=== PATIENT | male | born 1985 | race Caucasian/White ===

== ENCOUNTER 2023-06-04 14:45 | Outpatient (CLI) | payer OTHER, SELFPAY ==
[2023-06-04 14:15] LABS: Coronavirus 19, PCR Not Detected (NotDetected); Influenza B, PCR Not Detected (NotDetected)
[2023-06-04 14:55] LABS: Influenza A, PCR Detected (NotDetected)
== END 2023-06-04 23:59 ==
LOC: LAB.DROPOF 14:46
PROVIDERS: PCP Family Medicine; Visit Provider Family Medicine
DX: R05.9 Cough, unspecified (principal); J09.X2 Influenza due to identified novel influenza A virus with other respiratory manifestations; F17.210 Nicotine dependence, cigarettes, uncomplicated
CPT/HCPCS: 87636

== ENCOUNTER 2024-06-10 19:12 | Emergency (ER) | payer OTHER, SELFPAY ==
[2024-06-10] VITALS (10 sets, daily range): BP systolic 138–141; BP diastolic 86–96; PULSE 105–122; RESP 15–23; TEMP 36.9; O2SAT 95–96; BMI 32.3
--- NOTE | 2024-06-10 19:30 | ECG_ITS ---
APPROVED REPORT Exam: Resting ECG HR:124 bpm ECG Measurements Heart Rate 124 AXES ND 120 P 3 QRSd 93 QRS -33 QT 267 T 62 QTc 340 Conclusion SINUS TACHYCARDIA LEFT AXIS DEVIATION [QRS AXIS < -30] MINIMAL VOLTAGE CRITERIA FOR LVH, CONSIDER NORMAL VARIANT [MEETS CRITERIA IN ONE OF: R(aVL), S(V1), R(V5), R(V5/V6)+S(V1)] NONSPECIFIC T-WAVE ABNORMALITY ABNORMAL ECG UNCONFIRMED REPORT Electronically signed by : ALICE LAURENT, 06/11/2024 06:51:04
--- NOTE | 2024-06-10 20:05 | ED_ITS ---
<Statement entered by Lillie Bernard DO - 06/11/24 00:24> I was consulted by the ARTURO, and we discussed the complexity of the problems being addressed. I approved the treatment and management plan for this patient's care in the emergency department, thus performing a substantive portion of the medical decision making. Troponins negative x 2, D-dimer negative, workup overall very reassuring. On reassessment, symptoms resolved with improvement in heart rate to the low 100s. Patient notes his baseline heart rate is high. Ultimately, after shared decision-making, he is comfortable with discharge with close follow-up with primary care. Strict return precautions given Lillie Bernard DO Discharge Plan Disposition Chief Complaint: Chest Pain Prescriptions Prescriptions: No Action Xarelto 20 mg tablet 20 mg PO DAILY Patient Comments: TAKE 1 TABLET BY MOUTH ONCE DAILY WITH DINNER aspirin 81 mg tablet,chewable 1 tab PO DAILY Patient Comments: CHEW AND SWALLOW 1 TABLET BY MOUTH ONCE DAILY azithromycin 250 mg tablet See Rx Instructions PO .COMPLEX Qty: 6 0RF Rx Instructions: For 250 mg dose pack: take 500 mg today (day 1), then 250 mg for 4 days (days 2-5) PO codeine-guaifenesin 10-100 mg/5 mL liquid 10 ml PO Q4-6H PRN (Reason: cough) Qty: 120 1RF Referrals Follow up/Referrals: Michoacano Lyons MD [Primary Care Provider] - See instructions Print Language Print Language: Fijian Discharge ED Provider: Lillie Bernard General Adult HPI General Chief complaint: Chest Pain Stated complaint: pain under LT arm Time Seen by Provider: 06/10/24 20:04 Mode of Arrival: Ambulatory Source of Information: Patient Limitations: No Limitations Description of Symptoms (Recalled from ER Triage Doc. by RN): left lateral chest pain for 2-3 hours, cough, sweats, chills History of Present Illness HPI narrative: Patient presents for evaluation of left posterior chest pain. Patient reports that he has had 2 to 3 hours of constant mid thoracic back pain. He denies any shortness of breath fever chills hemoptysis hematochezia melena nausea vomiting diarrhea but does endorse a nonproductive cough and diaphoresis. Patient has a past medical history of previous strokes and is on lifelong Xarelto. He also reportedly has a history of a cardiac tachyarrhythmia and was on medication for some period of time but is no longer taking it. Related Data Home Medications ?Medication ?Instructions ?Recorded ?Confirmed aspirin 81 mg chewable tablet 1 tab PO DAILY 06/04/23 06/04/23 rivaroxaban 20 mg tablet (Xarelto) 20 mg PO DAILY 06/04/23 06/04/23 Previous Rx's ?Medication ?Instructions ?Recorded azithromycin 250 mg tablet See Rx Instructions PO .COMPLEX #6 06/04/23 tabs codeine 10 mg-guaifenesin 100 mg/5 10 ml PO Q4-6H PRN cough #120 mL 06/04/23 mL oral liquid Allergies Allergy/AdvReac Type Severity Reaction Status Date / Time No Known Allergies Allergy Verified 06/04/23 10:03 [facility] Disclaimer: The information contained in this section may have been updated after the patient was seen, as this information can be updated by other users. Medical History (Updated 06/04/23 @ 10:05 by Elvi Luciano LPN) Antiphospholipid syndrome Surgical History (Updated 06/04/23 @ 10:05 by Elvi Luciano LPN) No history of previous surgery Family History (Updated 06/04/23 @ 10:05 by Elvi Luciano LPN) Father Heart attack Grandfather Heart attack Social History (Updated 06/04/23 @ 10:06 by Elvi Luciano LPN) Smoking Status: Current every day smoker alcohol intake: current alcohol intake frequency: a few times a month current occupational status: employed Travel in the last 8 weeks: None household members: significant other housing: house Have you lived/traveled outside [place] in past 30 days?: No Contact w/someone who lives/traveled outside [place] past 30 days?: No Exposure to someone with infectious disease in past 14 days?: No Do you have a fever (greater than 100.4 F or 38 C)?: No Have you tested positive for COVID-19: No Exposed to someone with COVID-19 in past 14 days?: No Do you have a sore throat?: No Do you have a cough?: No Do you have any weakness?: No Do you have any diarrhea?: No Are you experiencing any unusual bleeding?: No Do you have any muscle aches/pain?: No Do you have any abdominal pain?: No Are you experiencing loss of taste or smell?: No ROS Obtained: Yes Systems reviewed as appropriate & no additional complaints except as documented Physical Exam General General appearance: alert and in no apparent distress Neck Neck exam: Present lymphadenopathy Respiratory Respiratory exam: Present normal lung sounds bilaterally; Absent respiratory distress, wheezes or accessory muscle use Cardiovascular Cardiovascular exam: Present tachycardia Neurological Exam Neurological exam: Present alert and oriented X3 Medical Decision Making Medical Records Medical records reviewed: Yes I reviewed the patient's medical records. Screening: Per USPSTF and CDC recommendations, given the prevalence of disease in our region, it is our hospital?s policy to screen for HIV and viral Hepatitis for all patients aged 18 and over and those with ongoing risk factors. Kory Inquiry Pt receiving controlled substance: No Vital Signs: 06/10/24 19:13 Pulse Rate [Right Radial] 122 H Respiratory Rate 17 Blood Pressure [Right Arm] 138/86 Blood Pressure Mean [Right Arm] 103 Blood Pressure Source [Right Arm] Automatic Cuff 02 Sat by Pulse Oximetry 96 Oxygen Delivery Method Room Air Lab Data Lab results reviewed: Yes I reviewed the patient's lab results. Lab Results 06/10/24 19:50: WBC 8.3, RBC 4.30 L, Hgb 13.0 L, Hct 38.2 L, MCV 88.8, MCH 30.2, MCHC 34.0, RDW 13.2, Plt Count 126 L, MPV 11.5 H, Neut % (Auto) 65.8, Lymph % (Auto) 18.5, Sherman % (Auto) 10.9 H, Eos % (Auto) 3.2, Baso % (Auto) 1.0, Neut # (Auto) 5.5, Lymph # (Auto) 1.5, Sherman # (Auto) 0.9, Eos # (Auto) 0.3, Baso # (Auto) 0.1 06/10/24 19:50 Orders (Tests/Meds): ED MEDICATIONS Discontinued Medications Generic Name Dose Route Start Last Admin Trade Name Freq PRN Reason Stop Dose Admin Acetaminophen 1,000 mg 06/10/24 20:24 06/10/24 20:42 Acetaminophen 1,000mg/100ml Vial IV 06/10/24 20:25 1,000 mg ONCE ONE Administration Ketorolac Tromethamine 15 mg 06/10/24 20:24 06/10/24 20:43 Ketorolac 30mg/Ml Vial IV 06/10/24 20:25 15 mg ONCE ONE Administration ORDERS Category Date Time Status Chest XR 2 view (NOT portable) [XR chest 2V] Stat Exams 06/10/24 20:24 Completed BNP [NT Pro Brain Natriuretic Pep.] Stat Lab 06/10/24 19:50 Received CBC w/Auto Diff [Complete Blood Count Auto Diff] Stat Lab 06/10/24 19:50 Completed CMP [Comprehensive Metabolic Panel] Stat Lab 06/10/24 19:50 Received D-Dimer Stat Lab 06/10/24 19:50 Received HIV Combo Routine Lab 06/10/24 20:00 Received Hepatitis C Ab Qual. W/ RFX Routine Lab 06/10/24 20:00 Received Rapid PCR Covid and Flu A/B Stat Lab 06/10/24 20:40 Received Trop I [Troponin I] Stat Lab 06/10/24 19:50 Received Troponin I Q3H Lab 06/10/24 23:30 Ordered Troponin I Q3H Lab 06/11/24 02:30 Ordered Medical Decision Narrative: In summary patient is a 89-year-old male who presents to the emergency department for evaluation of posterior left-sided chest pain. Patient is initially normotensive at 138/86 tachycardic at 122 with sinus tachycardia on the bedside monitor, breathing 17 times a minute with an O2 sat of 96% on room air upon arrival, with a temperature of 101. Physical exam is remarkable for clear breath sounds on auscultation no reproducible pain on palpation patient however is hot to touch and diaphoretic but has no increased work of breathing. Heart sounds are normal.. Differential diagnosis includes ACS versus PE versus viral or bacterial upper or lower respiratory tract infection etc. Initial workup will be conducted with twelve-lead EKG D-dimer hematologic labs respiratory panel. Initial interventions include crystalloid bolus Toradol Tylenol. Initial workup ordered and pending at the time of handoff Dr. Bernard at 2100 hrs. Critical Care Critical Care Time Critical Care Time: No
--- NOTE | 2024-06-10 20:24 | XR_ITS ---
PROCEDURE INFORMATION: Exam: XR Chest Exam date and time: 06/10/2024 8:25 PM Age: 38 years old Clinical indication: Chest wall pain; Left posterior chest pain, productive cough TECHNIQUE: Imaging protocol: Radiologic exam of the chest. Views: 2 views. COMPARISON: No relevant prior studies available. FINDINGS: Lungs: Patchy opacities in a basilar predominant distribution may reflect infection. Pleural spaces: No large effusion or pneumothorax. Heart/Mediastinum: No evidence of mediastinal widening or cardiac silhouette enlargement; the mediastinum and heart appear within normal limits for contour and size. Diaphragm: There is elevation of the right hemidiaphragm. Bones/joints: No evidence of acute osseous abnormalities within the visualized portions of the thoracic spine and ribs. Osseous structures appear appropriate for patient age. IMPRESSION: Patchy opacities in a basilar predominant distribution may reflect infection.
[2024-06-10] MEDS: ACETAMINOPHEN 1,000MG/100ML VIAL 1000 MG IV (20:42)
[2024-06-10] MEDS: KETOROLAC 30MG/ML VIAL 15 MG IV (20:43)
[2024-06-10 20:45] LABS: Basophils # 0.1 K/mm3 (0-0.2); Eosinophils # 0.3 K/mm3 (0.0-0.4); Eosinophils % 3.2 % (0.1-12.0); Hematocrit 38.2 % (42.0-52.0); Lymphocytes # 1.5 K/mm3 (0.7-4.5); Lymphocytes % 18.5 % (10-50); Mean Corpuscular Hemoglobin 30.2 pg (27.0-31.2); Mean Corpuscular Volume 88.8 fl (80-94); Mean Platelet Volume 11.5 fl (7.4-10.4); Monocytes # 0.9 K/mm3 (0.1-1.0); Monocytes % 10.9 % (1.7-9.3); Neutrophils # 5.5 K/mm3 (1.8-7.8); Neutrophils % 65.8 % (37.0-80.0); Platelet Count 126 K/mm3 (142-424); Red Cell Distribution Width 13.2 % (11.5-17.5); White Blood Count 8.3 K/mm3 (4.8-10.8)
[2024-06-10 20:47] LABS: Coronavirus 19, PCR Not Detected (NotDetected); Influenza A, PCR Not Detected (NotDetected); Influenza B, PCR Not Detected (NotDetected)
[2024-06-10 20:51] LABS: Alanine Aminotransferase 49 U/L (12-78); Albumin Level 4.6 g/dl (3.5-5.0); Albumin/Globulin Ratio 1.5 (1.1-1.8); Alkaline Phosphatase 83 U/L (38-126); Anion Gap 15.8 mEq/L (5-15); Aspartate Amino Transferase 46 U/L (17-59); Bilirubin,Total 0.8 mg/dl (0.2-1.3); Blood Urea Nitrogen 13 mg/dl (9-20); Calcium 8.7 mg/dl (8.4-10.2); Carbon Dioxide 27 mmol/L (22.0-30.0); Chloride 101 mmol/L (98-107); Creatinine Clearance Estimated 108 mL/min (50-200); Estimated Glomerular Filt Rate 68 ml/min (>60); GFR (African American) 82 ML/MIN (>60); Glucose 104 mg/dl (74-100); Potassium 3.8 mmoL/L (3.5-5.1); Sodium 140 mmol/L (136-145); Total Protein,Serum 7.6 g/dl (6.3-8.2)
[2024-06-10 20:56] LABS: D-Dimer 0.41 ug/mL (0.0-0.5)
[2024-06-10 21:01] LABS: NT Pro Brain Natriuretic Pep. 84.6 pg/mL (0-125)
[2024-06-10 21:30] LABS: Troponin I < 0.01 ng/ml (0.00-0.034)
[2024-06-10 21:55] LABS: HIV Combo NEGATIVE (Negative)
--- NOTE | 2024-06-10 21:58 | PC.NURSE ---
Patient was removed from the monitor and IV to use the restroom.
--- NOTE | 2024-06-10 22:04 | PC.NURSE ---
Pt remains in ST per continuous monitor. Pt states pain improved at this time. Repeat troponin drawn and sent
--- NOTE | 2024-06-10 22:10 | PC.NURSE ---
2209- Troponin collected via RAC, labeled at bedside using two patient identifiers, sent to lab for analysis.
[2024-06-10 22:28] LABS: Hepatitis C Ab Qual. W/ RFX NEGATIVE (Negative)
--- NOTE | 2024-06-10 22:30 | PC.NURSE ---
Pt aware of waiting for results IV d/c'd catheter intact bleeding controlled
[2024-06-10 22:37] LABS: Troponin I < 0.01 ng/ml (0.00-0.034)
== END 2024-06-10 23:05 | disposition home or self-care (01) ==
PROVIDERS: Physician Assistant; Emergency Provider Emergency Medicine; PCP Emergency Medicine
DX: R07.9 Chest pain, unspecified (principal); R05.9 Cough, unspecified; M54.9 Dorsalgia, unspecified; R68.83 Chills (without fever)
CPT/HCPCS: 71046; 80053; 83880; 84484; 85025; 85378; 86803; 87389; 87636; 93005; 96374; 96375; 99284; J0131; J1885